=== PATIENT | female | born 1965 | race Caucasian/White ===

== ENCOUNTER 2019-11-07 22:32 | Emergency (ER) | payer MEDICAID ==
[2019-11-07] MEDS ORDERED: Ondansetron 4 MG/2 ML SDV IVPUSH ONE (23:12)
[2019-11-07] MEDS ORDERED: Sodium Chloride 0.9% 2.5 ML Syringe FLUSH PRN (23:12)
[2019-11-07] MEDS ORDERED: Sodium Chloride 0.9% 10 ML Syringe FLUSH PRN (23:12)
[2019-11-07] MEDS ORDERED: Pantoprazole 40 MG in Sodium Chloride 0.9% 10 ML IV ONE (23:14)
[2019-11-07] MEDS ORDERED: Sodium Chloride 0.9% 1,000 ML IV SCH (23:15)
--- NOTE | 2019-11-07 23:18 | EDM.PDOC ---
ED HPI GENERAL MEDICAL PROBLEM - General Chief Complaint: Abdominal Pain Stated Complaint: VOMITTING,ABODOMINAL PAIN Time Seen by Provider: 11/07/19 22:50 - History of Present Illness INITIAL COMMENTS - FREE TEXT/NARRATIVE: History of present illness: [] The patient is recently been tapered down to every other day venlafaxine per her doctor in [place]. She has begun to have vomiting today and cannot keep anything down. When she takes something by mouth she immediately gets epigastric pain then she vomits. She does not have the pain in between the episodes of trying to eat. Her bowels are soft and sometimes hard but not terribly Adaline. When she vomits she loses a little bit a urine but there is no burning. Patient feels lightheaded when she stands and feels like she is dehydrated. Her mouth is very dry. All of this follows reduction of her gabapentin and complete withdrawal recently. She had been taking that for pain in the sciatic region on the left side. The patient decided that she was trying to withdraw from to many things too quickly and took an extra venlafaxine today but was unable to keep it down. Review of systems: As per history of present illness and below otherwise all systems reviewed and negative. Past medical history: As per history of present illness and as reviewed below otherwise noncontributory. Surgical history: As per history of present illness and as reviewed below otherwise noncontributory. Social history: No reported history of drug or alcohol abuse. Family history: As per history of present illness and as reviewed below otherwise noncontributory. Physical exam: Constitutional - well developed, well-nourished and in no acute distress HEENT - normocephalic, no evidence of trauma - external nose and mouth normal - no mass in neck and no JVD - mucosae moist EYES - full EOM, PERRL, no icterus - no evidence of inflammation, injection, or drainage Respiratory - no respiratory distress, equal bilateral expansion, lungs clear to auscultation and no abnormal lung sounds Cardiovascular - Regular Rhythm with S1 and S2 appreciated and no murmur, gallop or rub. Peripheral pulses symmetrically normal in all four extremities GI -tender epigastrium but in the epigastrium - abdomen soft without distension or organomegaly - normal bowel sounds - no guard or rebound Musculoskeletal no gross deformity of long bones or joints - no tenderness, swelling or edema Neurologic - Alert and oriented times four - CN II-XII grossly intact - motor sensory and coordination symmetrically normal Psychiatric - appropriate mood and affect with normal thought content Hematologic - No petechiae or purpura - mucosa appropriate color and sclera not pale - normal nail bed color and refill Integument - no rash or evidence of trauma -diminished turgor Diagnostics: [] Therapeutics: [] Impression: [] Plan: [] Definitive disposition and diagnosis as appropriate pending reevaluation and review of above. abdomen Pain Score (Numeric/FACES): 8 - Related Data Allergies Allergy/AdvReac Type Severity Reaction Status Date / Time latex Allergy Rash Verified 11/07/19 23:42 Sulfa (Sulfonamide Allergy Cannot Verified 11/07/19 23:42 Antibiotics) Remember Home Meds: Home Meds ALPRAZolam [Alprazolam] 0.5 mg PO TID PRN #15 tablet 11/08/19 [Rx] Ondansetron [Zofran ODT] 4 mg PO Q6H PRN #10 tab.dis 11/08/19 [Rx] ED ROS GENERAL - Review of Systems Review Of Systems: Comprehensive ROS is negative, except as noted in HPI. ED EXAM, GENERAL - Physical Exam Exam: See Below Free Text/Narrative:: My physical exam as in the HPI Course - Vital Signs Text/Narrative:: The patient improved with hydration and the medications ordered. She will be told to take her results twice a day, use antacids as needed, and given a prescription for Xanax for short-term relief of her anxiety and Zofran for nausea. Last Recorded V/S: Last Vital Signs Temp 96.2 F L 11/07/19 23:06 Pulse 64 11/08/19 00:30 Resp 17 11/08/19 00:30 BP 117/55 L 11/08/19 00:30 Pulse Ox 94 L 11/08/19 00:30 - Orders/Labs/Meds Orders: Active Orders 24 hr Category Date Time Status Communication Order [RC] STAT Care 11/07/19 23:15 Active Sodium Chloride 0.9% [Normal Saline] 1,000 ml Med 11/07/19 23:15 Active IV ASDIRECTED Sodium Chloride 0.9% [Saline Flush] Med 11/07/19 23:12 Active 10 ml FLUSH ASDIRECTED PRN Sodium Chloride 0.9% [Saline Flush] Med 11/07/19 23:12 Active 2.5 ml FLUSH ASDIRECTED PRN Saline Lock Insert [OM.PC] Stat Oth 11/07/19 23:12 Ordered Medication Orders Sodium Chloride (Normal Saline) 1,000 mls @ 150 mls/hr IV ASDIRECTED RADHA Last Infusion: 11/08/19 00:41 Dose: 999 mls/hr Documented by: Admin: 11/07/19 23:43 Dose: 150 mls/hr Documented by: LORENZA Sodium Chloride (Saline Flush) 10 ml FLUSH ASDIRECTED PRN PRN Reason: Keep Vein Open Sodium Chloride (Saline Flush) 2.5 ml FLUSH ASDIRECTED PRN PRN Reason: Keep Vein Open Labs: Laboratory Tests 11/07/19 11/07/19 11/07/19 Range/Units 23:05 23:28 23:28 WBC 7.01 (4.0-11.0) K/uL RBC 4.55 (4.30-5.90) M/uL Hgb 15.9 (12.0-16.0) g/dL Hct 45.3 (36.0-46.0) % MCV 99.6 H (80.0-98.0) fL MCH 34.9 H (27.0-32.0) pg MCHC 35.1 (31.0-37.0) g/dL RDW Std Deviation 42.2 (28.0-62.0) fl RDW Coeff of Martha 12 (11.0-15.0) % Plt Count 220 (150-400) K/uL MPV 9.80 (7.40-12.00) fL Neut % (Auto) 71.6 (48.0-80.0) % Lymph % (Auto) 17.8 (16.0-40.0) % Dillon % (Auto) 10.1 (0.0-15.0) % Eos % (Auto) 0.1 (0.0-7.0) % Baso % (Auto) 0.4 (0.0-1.5) % Neut # (Auto) 5.0 (1.4-5.7) K/uL Lymph # (Auto) 1.3 (0.6-2.4) K/uL Dillon # (Auto) 0.7 (0.0-0.8) K/uL Eos # (Auto) 0.0 (0.0-0.7) K/uL Baso # (Auto) 0.0 (0.0-0.1) K/uL Nucleated RBC % 0.0 /100WBC Nucleated RBCs # 0 K/uL Sodium 142 (136-145) mmol/L Potassium 4.1 (3.5-5.1) mmol/L Chloride 100 (98-107) mmol/L Carbon Dioxide 30.0 (21.0-32.0) mmol/L BUN 13 (7.0-18.0) mg/dL Creatinine 0.9 (0.6-1.0) mg/dL Est Cr Clr Drug Dosing TNP Estimated GFR (MDRD) > 60.0 ml/min Glucose 161 H (74-106) mg/dL Calcium 9.9 (8.5-10.1) mg/dL Magnesium 1.7 L (1.8-2.4) mg/dL Total Bilirubin 0.7 (0.2-1.0) mg/dL AST 55 H (15-37) IU/L ALT 85 H (14-63) IU/L Alkaline Phosphatase 79 (46-116) U/L Total Protein 8.5 H (6.4-8.2) g/dL Albumin 4.7 (3.4-5.0) g/dL Globulin 3.8 (2.6-4.0) g/dL Albumin/Globulin Ratio 1.2 (0.9-1.6) Lipase 64 L (73-393) U/L Urine Color Cancelled Urine Appearance Cancelled Urine pH Cancelled Ur Specific Holton Cancelled Urine Protein Cancelled Urine Glucose (UA) Cancelled Urine Ketones Cancelled Urine Occult Blood Cancelled Urine Nitrite Cancelled Urine Bilirubin Cancelled Urine Ictotest Cancelled Urine Urobilinogen Cancelled Ur Leukocyte Esterase Cancelled U Hyaline Cast (Auto) Cancelled Urine RBC Cancelled Urine WBC Cancelled Ur Epithelial Cells Cancelled Ur Squamous Epith Cells Cancelled Ur Renal Epithelial Cell Cancelled Calcium Oxalate Crystal Cancelled Uric Acid Crystals Cancelled Triple Phos Crystals Cancelled Other Crystals Cancelled Amorphous Sediment Cancelled Urine Bacteria Cancelled Fine Granular Casts Cancelled Coarse Granular Casts Cancelled Waxy Casts Cancelled RBC Casts Cancelled WBC Casts Cancelled Urine Mucus Cancelled Urine Other Cancelled Urine Trichomonas Cancelled Urine Yeast Cancelled Urine Sperm Cancelled Ur Oval Fat Bodies Cancelled Urinalysis Comment Cancelled 11/07/19 Range/Units 23:50 WBC (4.0-11.0) K/uL RBC (4.30-5.90) M/uL Hgb (12.0-16.0) g/dL Hct (36.0-46.0) % MCV (80.0-98.0) fL MCH (27.0-32.0) pg MCHC (31.0-37.0) g/dL RDW Std Deviation (28.0-62.0) fl RDW Coeff of Martha (11.0-15.0) % Plt Count (150-400) K/uL MPV (7.40-12.00) fL Neut % (Auto) (48.0-80.0) % Lymph % (Auto) (16.0-40.0) % Dillon % (Auto) (0.0-15.0) % Eos % (Auto) (0.0-7.0) % Baso % (Auto) (0.0-1.5) % Neut # (Auto) (1.4-5.7) K/uL Lymph # (Auto) (0.6-2.4) K/uL Dillon # (Auto) (0.0-0.8) K/uL Eos # (Auto) (0.0-0.7) K/uL Baso # (Auto) (0.0-0.1) K/uL Nucleated RBC % /100WBC Nucleated RBCs # K/uL Sodium (136-145) mmol/L Potassium (3.5-5.1) mmol/L Chloride (98-107) mmol/L Carbon Dioxide (21.0-32.0) mmol/L BUN (7.0-18.0) mg/dL Creatinine (0.6-1.0) mg/dL Est Cr Clr Drug Dosing Estimated GFR (MDRD) ml/min Glucose (74-106) mg/dL Calcium (8.5-10.1) mg/dL Magnesium (1.8-2.4) mg/dL Total Bilirubin (0.2-1.0) mg/dL AST (15-37) IU/L ALT (14-63) IU/L Alkaline Phosphatase (46-116) U/L Total Protein (6.4-8.2) g/dL Albumin (3.4-5.0) g/dL Globulin (2.6-4.0) g/dL Albumin/Globulin Ratio (0.9-1.6) Lipase (73-393) U/L Urine Color YELLOW Urine Appearance CLEAR Urine pH 6.5 Ur Specific Holton >= 1.030 Urine Protein 30 H Urine Glucose (UA) NEGATIVE Urine Ketones NEGATIVE Urine Occult Blood TRACE-INTACT H Urine Nitrite NEGATIVE Urine Bilirubin NEGATIVE Urine Ictotest Urine Urobilinogen 0.2 Ur Leukocyte Esterase NEGATIVE U Hyaline Cast (Auto) Urine RBC 0-2 Urine WBC 0-1 Ur Epithelial Cells RARE Ur Squamous Epith Cells Ur Renal Epithelial Cell Calcium Oxalate Crystal Uric Acid Crystals Triple Phos Crystals Other Crystals Amorphous Sediment Urine Bacteria RARE Fine Granular Casts Coarse Granular Casts Waxy Casts RBC Casts WBC Casts Urine Mucus LIGHT Urine Other Urine Trichomonas Urine Yeast Urine Sperm Ur Oval Fat Bodies Urinalysis Comment Meds: Medications Generic Name Dose Route Start Last Admin Trade Name Freq PRN Reason Stop Dose Admin Sodium Chloride 1,000 mls @ 150 mls/hr 11/07/19 23:15 11/08/19 00:41 Normal Saline IV 999 mls/hr ASDIRECTED RADHA Infusion Sodium Chloride 10 ml 11/07/19 23:12 Saline Flush FLUSH ASDIRECTED PRN Keep Vein Open Sodium Chloride 2.5 ml 11/07/19 23:12 Saline Flush FLUSH ASDIRECTED PRN Keep Vein Open Discontinued Medications Generic Name Dose Route Start Last Admin Trade Name Freesther PRN Reason Stop Dose Admin Fentanyl 50 mcg 11/07/19 23:53 11/08/19 00:17 Fentanyl IVPUSH 11/07/19 23:54 50 mcg ONETIME ONE Administration Fentanyl Confirm 11/08/19 00:14 11/08/19 00:36 Fentanyl Administered 11/08/19 00:15 Not Given Dose 50 mcg .ROUTE .STK-MED ONE Pantoprazole Sodium 40 mg/ 10 mls @ 300 mls/hr 11/07/19 23:14 11/07/19 23:47 Sodium Chloride IV 11/07/19 23:15 300 mls/hr NOW ONE Administration Lorazepam 1 mg 11/07/19 23:52 11/08/19 00:18 Ativan IVPUSH 11/07/19 23:53 1 mg ONETIME ONE Administration Lorazepam Confirm 11/08/19 00:14 11/08/19 00:36 Ativan Administered 11/08/19 00:15 Not Given Dose 2 mg .ROUTE .STK-MED ONE Ondansetron HCl 4 mg 11/07/19 23:12 11/07/19 23:44 Zofran IVPUSH 11/07/19 23:13 4 mg ONETIME ONE Administration Departure - Departure Time of Disposition: : Disposition: Home, Self-Care 01 Condition: Good Clinical Impression: Abdominal pain, Vomiting - Discharge Information Prescriptions: ALPRAZolam [Alprazolam] 0.5 mg PO TID PRN #15 tablet PRN Reason: Anxiety Ondansetron [Zofran ODT] 4 mg PO Q6H PRN #10 tab.dis PRN Reason: Nausea Instructions: Abdominal Pain, Adult, Nausea and Vomiting, Adult, [id number] Referrals: PCP,None [Primary Care Provider] - Forms: ED Department Discharge Additional Instructions: The following information is given to patients seen in the emergency department who are being discharged to home. This information is to outline your options for follow-up care. We provide all patients seen in our emergency department with a follow-up referral. The need for follow-up, as well as the timing and circumstances, are variable depending upon the specifics of your emergency department visit. If you don't have a primary care physician on staff, we will provide you with a referral. We always advise you to contact your personal physician following an emergency department visit to inform them of the circumstance of the visit and for follow-up with them and/or the need for any referrals to a consulting specialist. The emergency department will also refer you to a specialist when appropriate. This referral assures that you have the opportunity for follow-up care with a specialist. All of these measure are taken in an effort to provide you with optimal care, which includes your follow-up. Under all circumstances we always encourage you to contact your private physician who remains a resource for coordinating your care. When calling for follow-up care, please make the office aware that this follow-up is from your recent emergency room visit. If for any reason you are refused follow-up, please contact the [facility] Emergency Department at and asked to speak to the emergency department charge nurse. [facility] - Primary Care [address] [place] [address] [facility] [address] [place] [id number] Sepsis Event Note (ED) - Focused Exam Vital Signs: Vital Signs Temp Pulse Resp BP Pulse Ox 11/08/19 00:30 64 17 117/55 L 94 L 11/07/19 23:06 96.2 F L 73 18 141/76 H 95 - My Orders Last 24 Hours: My Active Orders 11/07/19 23:12 Sodium Chloride 0.9% [Saline Flush] 10 ml FLUSH ASDIRECTED PRN Sodium Chloride 0.9% [Saline Flush] 2.5 ml FLUSH ASDIRECTED PRN Saline Lock Insert [OM.PC] Stat 11/07/19 23:15 Communication Order [RC] STAT Sodium Chloride 0.9% [Normal Saline] 1,000 ml IV ASDIRECTED - Assessment/Plan Last 24 Hours: My Active Orders 11/07/19 23:12 Sodium Chloride 0.9% [Saline Flush] 10 ml FLUSH ASDIRECTED PRN Sodium Chloride 0.9% [Saline Flush] 2.5 ml FLUSH ASDIRECTED PRN Saline Lock Insert [OM.PC] Stat 11/07/19 23:15 Communication Order [RC] STAT Sodium Chloride 0.9% [Normal Saline] 1,000 ml IV ASDIRECTED
[2019-11-07] MEDS ORDERED: LORazepam 2 MG/ML SDV IVPUSH ONE (23:52)
[2019-11-07] MEDS ORDERED: fentaNYL 50 MCG/ML SDV IVPUSH ONE (23:53)
[2019-11-07 23:58] LABS: BLOOD UREA NITROGEN,BUN 13 mg/dL (7.0-18.0); CHLORIDE,CL 100 mmol/L (98-107); GLUCOSE RANDOM 161 mg/dL (74-106); LIPASE 64 U/L (73-393); POTASSIUM,K 4.1 mmol/L (3.5-5.1); SODIUM,NA 142 mmol/L (136-145)
[2019-11-08] MEDS ORDERED: LORazepam 2 MG/ML SDV ONE (00:14)
[2019-11-08] MEDS ORDERED: fentaNYL 50 MCG/ML SDV ONE (00:14)
== END 2019-11-08 01:35 | disposition home or self-care (01) ==
LOC: MW.ED 22:32
DX: R10.9 Unspecified abdominal pain (principal); R11.10 Vomiting, unspecified; Z88.2 Allergy status to sulfonamides; Z91.040 Latex allergy status; Z79.899 Other long term (current) drug therapy
CPT/HCPCS: 36415; 80053; 81001; 83690; 83735; 85025; 96361; 96374; 96375; 99284; C9113; J2060; J2405; J3010; J7030; J7050; 99283

== ENCOUNTER 2019-12-17 19:34 | Emergency (ER) | payer MEDICAID ==
[2019-12-17] MEDS ORDERED: Sodium Chloride 0.9% 2.5 ML Syringe FLUSH PRN (19:40)
[2019-12-17] MEDS ORDERED: Sodium Chloride 0.9% 10 ML Syringe FLUSH PRN (19:40)
[2019-12-17] MEDS ORDERED: Ondansetron 4 MG/2 ML SDV IVPUSH ONE (20:03)
[2019-12-17] MEDS ORDERED: Lactated Ringers 1,000 ML IV ONE (20:03)
[2019-12-17] MEDS ORDERED: LORazepam 2 MG/ML SDV IVPUSH ONE (20:03)
--- NOTE | 2019-12-17 20:17 | EDM.PDOC ---
ED HPI GENERAL MEDICAL PROBLEM - General Chief Complaint: Gastrointestinal Problem Stated Complaint: VOMITING Time Seen by Provider: 12/17/19 19:36 Source of Information: Reports: Patient History Limitations: Reports: No Limitations - History of Present Illness INITIAL COMMENTS - FREE TEXT/NARRATIVE: 54-year-old female with history of CAD with stent, HTN, anxiety, GERD presents with nausea and vomiting since 2 PM today. She vomited 2 episodes of nonbloody and nonbilious substance and then started dry heaving, too many times to count. Now her back is sore. This started after drinking water. She denies chest pain, shortness of breath, abdominal pain, fever, dysuria, urinary frequency. She does admit to feeling clammy with chills and palpitations. She had a Holter monitor placed. ROS: A 10-point review of systems, other than pertinent positives and negatives as stated per HPI, is otherwise negative Past medical history: No additional pertinent history Past Surgical history: No additional pertinent history Social history: No additional pertinent history Family history: No additional pertinent history PHYSICAL EXAM General: AOx4, GCS = 15, No distress HEENT: dry mucous membrane Neck: supple, no meningismus, no Kernig or Brudzinski Cardiac: S1S2 RRR Respiratory: CTAB, no crackles or rales, no wheezing Abdomen: Soft, nontender, no rebound or guarding, nondistended, no pulsatile mass. Back: nontender Musculoskeletal: NVI distally, no deformity Neuro: No focal deficits, CN 2 - 12 WNL. - Related Data Allergies Allergy/AdvReac Type Severity Reaction Status Date / Time latex Allergy Rash Verified 12/17/19 19:43 Sulfa (Sulfonamide Allergy Cannot Verified 12/17/19 19:43 Antibiotics) Remember Home Meds: Home Meds ALPRAZolam [Alprazolam] 0.5 mg PO TID PRN #15 tablet 11/08/19 [Rx] Ondansetron [Zofran ODT] 4 mg PO Q6H PRN #10 tab.dis 11/08/19 [Rx] Aspirin 81 mg PO DAILY 12/17/19 [History] Clopidogrel [Plavix] 75 mg PO DAILY 12/17/19 [History] Metoprolol Tartrate 25 mg PO DAILY 12/17/19 [History] Ondansetron [Zofran ODT] 4 mg PO Q6H PRN #12 tab.dis 12/17/19 [Rx] Venlafaxine [Effexor] 37.5 mg PO DAILY 12/17/19 [History] traZODone HCl [Trazodone HCl] 50 mg PO DAILY 12/17/19 [History] Past Medical History HEENT History: Reports: None Cardiovascular History: Reports: High Cholesterol, Stents Respiratory History: Reports: None Gastrointestinal History: Reports: Irritable Bowel Syndrome Genitourinary History: Reports: None 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: Musculoskeletal History: Reports: None Neurological History: Reports: None Psychiatric History: Reports: Anxiety, Depression, PTSD Endocrine/Metabolic History: Reports: None Hematologic History: Reports: None Immunologic History: Reports: None Oncologic (Cancer) History: Reports: None Dermatologic History: Reports: None - Infectious Disease History Infectious Disease History: Reports: None - Past Surgical History Head Surgeries/Procedures: Reports: None Cardiovascular Surgical History: Reports: Coronary Artery Stent GI Surgical History: Reports: None Social & Family History - Family History Family Medical History: Noncontributory - Tobacco Use Smoking Status *Q: Former Smoker Used Tobacco, but Quit: No - Caffeine Use Caffeine Use: Reports: None - Recreational Drug Use Recreational Drug Use: No ED ROS GENERAL - Review of Systems Review Of Systems: Comprehensive ROS is negative, except as noted in HPI. ED EXAM, GENERAL - Physical Exam Exam: See Below (see dictation) EKG INTERPRETATION EKG Interpretation Comments: 65 Bpm, NSR, normal QRS interval, poor R wave progression, no STEMI. EKG and rhythm strip interpreted by me at 2010 Course - Vital Signs Last Recorded V/S: Last Vital Signs Temp 96.5 F L 12/17/19 19:45 Pulse 66 12/17/19 20:15 Resp 18 12/17/19 20:15 BP 142/58 H 12/17/19 22:45 Pulse Ox 98 12/17/19 19:45 - Orders/Labs/Meds Orders: Active Orders 24 hr Category Date Time Status EKG 12 Lead [EKG Documentation Completion] [RC] STAT Care 12/17/19 20:03 Active CTA Abd Pelv w Cont [CT] Stat Exams 12/17/19 20:14 Taken Sodium Chloride 0.9% [Saline Flush] Med 12/17/19 19:40 Active 10 ml FLUSH ASDIRECTED PRN Sodium Chloride 0.9% [Saline Flush] Med 12/17/19 19:40 Active 2.5 ml FLUSH ASDIRECTED PRN Saline Lock Insert [OM.PC] Stat Oth 12/17/19 19:40 Ordered Medication Orders Sodium Chloride (Saline Flush) 10 ml FLUSH ASDIRECTED PRN PRN Reason: Keep Vein Open Sodium Chloride (Saline Flush) 2.5 ml FLUSH ASDIRECTED PRN PRN Reason: Keep Vein Open Labs: Laboratory Tests 12/17/19 12/17/19 12/17/19 Range/Units 19:45 19:55 19:55 WBC 5.62 (4.0-11.0) K/uL RBC 4.19 L (4.30-5.90) M/uL Hgb 14.8 (12.0-16.0) g/dL Hct 41.4 (36.0-46.0) % MCV 98.8 H (80.0-98.0) fL MCH 35.3 H (27.0-32.0) pg MCHC 35.7 (31.0-37.0) g/dL RDW Std Deviation 43.3 (28.0-62.0) fl RDW Coeff of Martha 12 (11.0-15.0) % Plt Count 158 (150-400) K/uL MPV 9.40 (7.40-12.00) fL Neut % (Auto) 60.9 (48.0-80.0) % Lymph % (Auto) 27.8 (16.0-40.0) % [place] % (Auto) 9.4 (0.0-15.0) % Eos % (Auto) 1.4 (0.0-7.0) % Baso % (Auto) 0.5 (0.0-1.5) % Neut # (Auto) 3.4 (1.4-5.7) K/uL Lymph # (Auto) 1.6 (0.6-2.4) K/uL [place] # (Auto) 0.5 (0.0-0.8) K/uL Eos # (Auto) 0.1 (0.0-0.7) K/uL Baso # (Auto) 0.0 (0.0-0.1) K/uL Nucleated RBC % 0.0 /100WBC Nucleated RBCs # 0 K/uL Sodium 138 (136-145) mmol/L Potassium 3.9 (3.5-5.1) mmol/L Chloride 99 (98-107) mmol/L Carbon Dioxide 28.0 (21.0-32.0) mmol/L BUN 9 (7.0-18.0) mg/dL Creatinine 1.0 (0.6-1.0) mg/dL Est Cr Clr Drug Dosing 47.40 mL/min Estimated GFR (MDRD) 57.4 ml/min Glucose 121 H (74-106) mg/dL Calcium 10.1 (8.5-10.1) mg/dL Total Bilirubin 1.0 (0.2-1.0) mg/dL AST 75 H (15-37) IU/L ALT 109 H (14-63) IU/L Alkaline Phosphatase 72 (46-116) U/L Troponin I (0.000-0.056) ng/mL Total Protein 8.0 (6.4-8.2) g/dL Albumin 4.9 (3.4-5.0) g/dL Globulin 3.1 (2.6-4.0) g/dL Albumin/Globulin Ratio 1.6 (0.9-1.6) Lipase 131 (73-393) U/L Urine Color YELLOW Urine Appearance HAZY Urine pH 7.0 (5.0-8.0) Ur Specific [place] 1.025 (1.001-1.035) Urine Protein 30 H (NEGATIVE) mg/dL Urine Glucose (UA) NEGATIVE (NEGATIVE) mg/dL Urine Ketones 15 H (NEGATIVE) mg/dL Urine Occult Blood SMALL H (NEGATIVE) Urine Nitrite NEGATIVE (NEGATIVE) Urine Bilirubin SMALL H (NEGATIVE) Urine Ictotest NEGATIVE Urine Urobilinogen 1.0 (<2.0) EU/dL Ur Leukocyte Esterase NEGATIVE (NEGATIVE) Urine RBC 0-4 (0-2/HPF) Urine WBC 0-2 (0-5/HPF) Ur Epithelial Cells FEW (NONE-FEW) Urine Bacteria FEW (NEGATIVE) 12/17/19 12/17/19 Range/Units 19:55 22:59 WBC (4.0-11.0) K/uL RBC (4.30-5.90) M/uL Hgb (12.0-16.0) g/dL Hct (36.0-46.0) % MCV (80.0-98.0) fL MCH (27.0-32.0) pg MCHC (31.0-37.0) g/dL RDW Std Deviation (28.0-62.0) fl RDW Coeff of Martha (11.0-15.0) % Plt Count (150-400) K/uL MPV (7.40-12.00) fL Neut % (Auto) (48.0-80.0) % Lymph % (Auto) (16.0-40.0) % [place] % (Auto) (0.0-15.0) % Eos % (Auto) (0.0-7.0) % Baso % (Auto) (0.0-1.5) % Neut # (Auto) (1.4-5.7) K/uL Lymph # (Auto) (0.6-2.4) K/uL [place] # (Auto) (0.0-0.8) K/uL Eos # (Auto) (0.0-0.7) K/uL Baso # (Auto) (0.0-0.1) K/uL Nucleated RBC % /100WBC Nucleated RBCs # K/uL Sodium (136-145) mmol/L Potassium (3.5-5.1) mmol/L Chloride (98-107) mmol/L Carbon Dioxide (21.0-32.0) mmol/L BUN (7.0-18.0) mg/dL Creatinine (0.6-1.0) mg/dL Est Cr Clr Drug Dosing mL/min Estimated GFR (MDRD) ml/min Glucose (74-106) mg/dL Calcium (8.5-10.1) mg/dL Total Bilirubin (0.2-1.0) mg/dL AST (15-37) IU/L ALT (14-63) IU/L Alkaline Phosphatase (46-116) U/L Troponin I < 0.050 < 0.050 (0.000-0.056) ng/mL Total Protein (6.4-8.2) g/dL Albumin (3.4-5.0) g/dL Globulin (2.6-4.0) g/dL Albumin/Globulin Ratio (0.9-1.6) Lipase (73-393) U/L Urine Color Urine Appearance Urine pH (5.0-8.0) Ur Specific [place] (1.001-1.035) Urine Protein (NEGATIVE) mg/dL Urine Glucose (UA) (NEGATIVE) mg/dL Urine Ketones (NEGATIVE) mg/dL Urine Occult Blood (NEGATIVE) Urine Nitrite (NEGATIVE) Urine Bilirubin (NEGATIVE) Urine Ictotest Urine Urobilinogen (<2.0) EU/dL Ur Leukocyte Esterase (NEGATIVE) Urine RBC (0-2/HPF) Urine WBC (0-5/HPF) Ur Epithelial Cells (NONE-FEW) Urine Bacteria (NEGATIVE) Meds: Medications Generic Name Dose Route Start Last Admin Trade Name Freesther PRN Reason Stop Dose Admin Sodium Chloride 10 ml 12/17/19 19:40 Saline Flush FLUSH ASDIRECTED PRN Keep Vein Open Sodium Chloride 2.5 ml 12/17/19 19:40 Saline Flush FLUSH ASDIRECTED PRN Keep Vein Open Discontinued Medications Generic Name Dose Route Start Last Admin Trade Name Goyo PRN Reason Stop Dose Admin Lactated Ringer's 1,000 mls @ 999 mls/hr 12/17/19 20:03 12/17/19 20:10 Ringers, Lactated IV 12/17/19 21:03 999 mls/hr .BOLUS ONE Administration Iopamidol 100 ml 12/17/19 21:40 12/17/19 21:41 Isovue-370 (76%) IVPUSH 12/17/19 21:41 100 ml ONETIME ONE Administration Lorazepam 1 mg 12/17/19 20:03 12/17/19 20:10 Ativan IVPUSH 12/17/19 20:04 1 mg ONETIME ONE Administration Ondansetron HCl 4 mg 12/17/19 20:03 12/17/19 20:10 Zofran IVPUSH 12/17/19 20:04 4 mg ONETIME ONE Administration - Re-Assessments/Exams Free Text/Narrative Re-Assessment/Exam: 12/17/19 2245 BP improved to 142/58 12/17/19 2339 After IVF, zofran and observation in the ER, patient improved clinically and is currently stable for discharge. I performed a repeat exam and did not appreciate new abnormal findings. Patient exhibits normal vital signs and has a normal gait on road test. I advised the patient to return to the ER for reevaluation if symptoms worsened, including fever, worsening pain, or any other worrisome symptoms. I instructed the patient to follow up with their PCP within 2-3 days. MEDICAL DECISION MAKING: I reviewed the patients past medical records, lab and radiographic findings. I discussed the case with the patient. My differential diagnosis included: Atypical chest pain, Aortic dissection, electrolyte abnormality, pneumonia, PE, pneumothorax, chest wall pain, pulmonary edema/CHF, aortic dissection, pericarditis, intra-abdominal process. Given the EKG and clinical history, I do not suspect pericarditis. There is no evidence of pneumothorax or infiltrate on CXR. Aortic dissection and PE were considered and ruled out on CTA study. Her history, chest X-ray, and exam do not suggest pulmonary edema/congestive heart failure. Intra-abdominal pathology felt unlikely given benign/non tender abdominal exam. Acute coronary syndrome was considered but there are negative serial biomarkers by 3 hours apart, no acute ischemic EKG changes, and the patient has a low HEART score of 2. Based on this, I feel that there is low risk for short-term major adverse cardiac event. I have discussed this with the patient and reviewed options for inpatient and outpatient management. The patient verbalizes an excellent understanding of the above including presence of small risk of short-term major adverse cardiac event even in the setting of low HEART score, negative cardiac biomarker, and compendium of elements of this presentation. The patient wishes to pursue further workup on as an outpatient. Departure - Departure Time of Disposition: 23:41 Disposition: Home, Self-Care 01 Condition: Good Clinical Impression: Vomiting - Discharge Information *PRESCRIPTION DRUG MONITORING PROGRAM REVIEWED*: Not Applicable *COPY OF PRESCRIPTION DRUG MONITORING REPORT IN PATIENT BRIGID: Not Applicable Prescriptions: Ondansetron [Zofran ODT] 4 mg PO Q6H PRN #12 tab.dis PRN Reason: Vomiting Instructions: Nausea and Vomiting, Adult Referrals: PCP,None [Primary Care Provider] - Forms: ED Department Discharge Additional Instructions: The need for follow-up, as well as the timing and circumstances, are variable depending upon the specifics of your emergency department visit. If you don't have a primary care physician on staff, we will provide you with a referral. We always advise you to contact your personal physician following an emergency department visit to inform them of the circumstance of the visit and for follow-up with them and/or the need for any referrals to a consulting specialist. The emergency department will also refer you to a specialist when appropriate. This referral assures that you have the opportunity for follow-up care with a specialist. All of these measure are taken in an effort to provide you with optimal care, which includes your follow-up. Under all circumstances we always encourage you to contact your private physician who remains a resource for coordinating your care. When calling for follow-up care, please make the office aware that this follow-up is from your recent emergency room visit. If for any reason you are refused follow-up, please contact the [facility] Emergency Department at and asked to speak to the emergency department charge nurse. If you do not have a primary care doctor, please follow up with the clinics below within 3-5 days. [facility] - Primary Care [address] [place] [id number] [address] [address] Sepsis Event Note (ED) - Evaluation Sepsis Screening Result: No Definite Risk - Focused Exam Vital Signs: Vital Signs Temp Pulse Resp BP Pulse Ox 12/17/19 22:45 142/58 H 12/17/19 20:15 66 18 153/82 H 12/17/19 19:45 96.5 F L 69 18 180/90 H 98 - My Orders Last 24 Hours: My Active Orders 12/17/19 19:40 Sodium Chloride 0.9% [Saline Flush] 10 ml FLUSH ASDIRECTED PRN Sodium Chloride 0.9% [Saline Flush] 2.5 ml FLUSH ASDIRECTED PRN Saline Lock Insert [OM.PC] Stat 12/17/19 20:03 EKG 12 Lead [EKG Documentation Completion] [RC] STAT 12/17/19 20:14 CTA Abd Pelv w Cont [CT] Stat - Assessment/Plan Last 24 Hours: My Active Orders 12/17/19 19:40 Sodium Chloride 0.9% [Saline Flush] 10 ml FLUSH ASDIRECTED PRN Sodium Chloride 0.9% [Saline Flush] 2.5 ml FLUSH ASDIRECTED PRN Saline Lock Insert [OM.PC] Stat 12/17/19 20:03 EKG 12 Lead [EKG Documentation Completion] [RC] STAT 12/17/19 20:14 CTA Abd Pelv w Cont [CT] Stat
[2019-12-17 20:49] LABS: POTASSIUM,K 3.9 mmol/L (3.5-5.1)
[2019-12-17] MEDS ORDERED: Iopamidol 755 Mg/ML 100 ML Bottle IVPUSH ONE (21:40)
--- NOTE | 2019-12-18 10:07 | CT ---
EXAM DATE: 12/17/19 PATIENT'S AGE: 54 CT chest Technique: Multiple axial sections through the chest were obtained. Intravenous contrast was utilized. Findings: Ascending aorta is ectatic with AP dimension of 3.3 cm. Descending aorta shows no aneurysm. No dissection is seen. Pulmonary arteries are well opacified. No filling defects are seen to indicate pulmonary embolism. Mediastinum and hilar regions show no adenopathy. Lungs show no acute parenchymal change. No pleural effusions are seen. Bone window setting show no acute osseous finding. Scattered endplate spurring is noted within the spine. Impression: 1. Mildly ectatic ascending aorta at 3.3 cm. No aneurysm or dissection is seen. No pulmonary embolism is seen. 2. Mild degenerative endplate spurring is noted within the spine. 3. Nothing acute is seen on CT study of the chest. Diagnostic code #2 This report was dictated in MDT CT abdomen and pelvis Technique: Multiple axial sections were obtained from above the dome of the diaphragm inferiorly through the pubic symphysis. Intravenous contrast was utilized. No oral contrast has been given. Findings: Liver shows severe fatty infiltration. Nodule is noted within the upper right lobe of the liver measuring 1.3 cm. Uncertain if this represents a small solid lesion within the liver or represents a small area of focal fatty sparing. Given that this is the only finding within the liver this is believed to be benign. Spleen appears within normal limits. Small amount of accessory splenic tissue is noted off the inferior spleen. Adrenal glands show no nodule. Kidneys show symmetric contrast enhancement without hydronephrosis or mass. Surgical clips are seen from previous cholecystectomy. Pancreas is normal. No retroperitoneal adenopathy or mesenteric abnormalities are seen. No pelvic mass or adenopathy is seen. Aorta shows no aneurysm or dissection. Mild atherosclerotic change is seen. Celiac axis and superior mesenteric arteries are patent. Both renal arteries are patent. Two left-sided renal arteries are noted. Inferior mesenteric artery is also patent. Both common iliac arteries as well as external and internal iliac arteries appear patent. Bone window settings were reviewed which show mild spondylolisthesis at L4-5 due to degenerative apophyseal change. Lesser degenerative change is seen within other portions of the spine. No acute osseous finding is seen. Impression: 1. No evidence of abdominal aortic aneurysm or dissection. 2. Severe fatty infiltration within the liver. Other findings as noted above believed to be benign and nonacute. Diagnostic code #3 This report was dictated in MDT MTDD
== END 2019-12-17 23:55 | disposition home or self-care (01) ==
LOC: MW.ED 19:34
DX: R11.10 Vomiting, unspecified (principal); I10 Essential (primary) hypertension; I25.10 Atherosclerotic heart disease of native coronary artery without angina pectoris; F32.9 Major depressive disorder, single episode, unspecified; F41.9 Anxiety disorder, unspecified; F43.10 Post-traumatic stress disorder, unspecified; Z91.040 Latex allergy status; Z88.2 Allergy status to sulfonamides; Z79.82 Long term (current) use of aspirin; Z79.02 Long term (current) use of antithrombotics/antiplatelets; Z79.899 Other long term (current) drug therapy
CPT/HCPCS: 36415; 71275; 74174; 80053; 81001; 83690; 84484; 85025; 93005; 96361; 96374; 96375; 99285; J2060; J2405; J7120; Q9967; 99283

== ENCOUNTER 2020-03-24 09:37 | Day surgery (SDC) | payer MEDICAID ==
[2020-03-21 11:54] LABS: BLOOD UREA NITROGEN,BUN 10 mg/dL (7.0-18.0); CARBON DIOXIDE,CO2 28.7 mmol/L (21.0-32.0); CHLORIDE,CL 101 mmol/L (98-107); GLUCOSE RANDOM 78 mg/dL (74-106); POTASSIUM,K 3.8 mmol/L (3.5-5.1); SODIUM,NA 141 mmol/L (136-145)
[~2020-03-24 09:37] MED LIST: Lactated Ringers 1,000 ML IV SCH; Lidocaine 2% 5 ML SDV ONE; Midazolam 1 MG/ML 2 ML SDV ONE; Ondansetron 4 MG/2 ML SDV ONE; Propofol 200 MG/20 ML SDV ONE; Sodium Chloride 0.9% 10 ML SDV IV PRN; Sodium Chloride 0.9% 10 ML Syringe FLUSH PRN; Sodium Chloride 0.9% 2.5 ML Syringe FLUSH PRN; fentaNYL 250 MCG/5 ML SDV ONE
[2020-03-24] MEDS ORDERED: Neomycin/Polymyxin B Bladder Irrigation 1 ML Amp ONE (10:19)
[2020-03-24] MEDS ORDERED: Fluorescein 5 ML Vial ONE (10:19)
--- NOTE | 2020-03-24 10:20 | PCM.PREANE ---
Preanesthetic Assessment - Anesthesia/Transfusion/Family Hx Anesthesia History: Prior Anesthesia Without Reaction Family History of Anesthesia Reaction: No Transfusion History: No Prior Transfusion(s) - Review of Systems General: No Symptoms Pulmonary: No Symptoms Cardiovascular: No Symptoms Gastrointestinal: No Symptoms Neurological: No Symptoms Other: Reports: None - Physical Assessment NPO Status Date: 03/23/20 Height: 5 ft 1 in Weight: 53.977 kg ASA Class: 3 Mental Status: Alert & Oriented x3 Airway Class: Mallampati = 2 Dentition: Reports: Normal Dentition ROM/Head Extension: Full Lungs: Clear to Auscultation, Normal Respiratory Effort Cardiovascular: Regular Rate, Regular Rhythm - Lab Values: Laboratory Last Values WBC 4.55 K/uL (4.0-11.0) 03/21/20 11:01 RBC 4.42 M/uL (4.30-5.90) 03/21/20 11:01 Hgb 15.6 g/dL (12.0-16.0) 03/21/20 11:01 Hct 45.4 % (36.0-46.0) 03/21/20 11:01 MCV 102.7 fL (80.0-98.0) H 03/21/20 11:01 MCH 35.3 pg (27.0-32.0) H 03/21/20 11:01 MCHC 34.4 g/dL (31.0-37.0) 03/21/20 11:01 RDW Std Deviation 49.5 fl (28.0-62.0) 03/21/20 11:01 RDW Coeff of [place] 13 % (11.0-15.0) 03/21/20 11:01 Plt Count 166 K/uL (150-400) 03/21/20 11:01 MPV 9.00 fL (7.40-12.00) 03/21/20 11:01 Nucleated RBC % 0.0 /100WBC 03/21/20 11:01 Nucleated RBCs # 0 K/uL 03/21/20 11:01 Sodium 141 mmol/L (136-145) 03/21/20 11:01 Potassium 3.8 mmol/L (3.5-5.1) 03/21/20 11:01 Chloride 101 mmol/L (98-107) 03/21/20 11:01 Carbon Dioxide 28.7 mmol/L (21.0-32.0) 03/21/20 11:01 BUN 10 mg/dL (7.0-18.0) 03/21/20 11:01 Creatinine 0.8 mg/dL (0.6-1.0) 03/21/20 11:01 Est Cr Clr Drug Dosing 59.25 mL/min 03/21/20 11:01 Estimated GFR (MDRD) > 60.0 ml/min 03/21/20 11:01 Glucose 78 mg/dL (74-106) 03/21/20 11:01 Calcium 9.8 mg/dL (8.5-10.1) 03/21/20 11:01 HCG, Qual NEGATIVE (NEG) 03/21/20 11:01 Blood Type A NEGATIVE 03/21/20 11:01 Antibody Screen NEGATIVE 03/21/20 11:01 - Allergies Allergies/Adverse Reactions: Allergies Allergy/AdvReac Type Severity Reaction Status Date / Time latex Allergy Rash Verified 03/18/20 09:39 Sulfa (Sulfonamide Allergy Cannot Verified 03/18/20 09:39 Antibiotics) Remember - Blood Blood Available: No - Anesthesia Plan Pre-Op Medication Ordered: None - Acknowledgements Anesthesia Type Planned: General Anesthesia Pt an Appropriate Candidate for the Planned Anesthesia: Yes Alternatives and Risks of Anesthesia Discussed w Pt/Guardian: Yes Pt/Guardian Understands and Agrees with Anesthesia Plan: Yes Additional Comments: PMH: AUD, PTSD, anxiety, chronic pain- R hand and back/LLE, SVT- primarily sinus tachycardia, fatty liver disease PLAN: GET PreAnesthesia Questionnaire HEENT History: Reports: None Other HEENT History: wears glasses Cardiovascular History: Reports: High Cholesterol, Stents Other Cardiovascular History: arteriosclerotic cardiovascular disease; had coronary artery stent placement October 2018 Respiratory History: Reports: None Gastrointestinal History: Reports: Irritable Bowel Syndrome Genitourinary History: Reports: None 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: Musculoskeletal History: Reports: None Neurological History: Reports: None Psychiatric History: Reports: Anxiety, Depression, PTSD Endocrine/Metabolic History: Reports: None Hematologic History: Reports: None Immunologic History: Reports: None Oncologic (Cancer) History: Reports: None Dermatologic History: Reports: None Other Dermatologic History: rosachia - Infectious Disease History Infectious Disease History: Reports: None Other Infectious Disease History: when a child - Past Surgical History Head Surgeries/Procedures: Reports: None HEENT Surgical History: Reports: None Cardiovascular Surgical History: Reports: Coronary Artery Stent GI Surgical History: Reports: None Female Surgical History: Reports: Hysterectomy, Other (See Below) Other Female Surgeries/Procedures: surgical pelvis repair Neurological Surgical History: Reports: None Other Musculoskeletal Surgeries/Procedures:: states has had left hand surgery in the past Dermatological Surgical History: Reports: None - SUBSTANCE USE Tobacco Use Status *Q: Former Tobacco User - HOME MEDS Home Medications: Home Meds Aspirin 81 mg PO DAILY 12/17/19 [History] Clopidogrel [Plavix] 75 mg PO DAILY 12/17/19 [History] Metoprolol Tartrate 25 mg PO DAILY 12/17/19 [History] Venlafaxine [Effexor] 37.5 mg PO DAILY 12/17/19 [History] traZODone HCl [Trazodone HCl] 50 mg PO DAILY 12/17/19 [History] Estrogens, Conjugated [Premarin] 1 applic TOP ASDIRECTED 03/18/20 [History] Famotidine 1 tab PO DAILY 03/18/20 [History] Fluticasone Propionate [Flonase Allergy Relief] 1 spray NASLF DAILY 03/18/20 [History] Gabapentin [Neurontin] 1 tab PO TID 03/18/20 [History] OXcarbazepine [Oxcarbazepine] 1 tab PO DAILY 03/18/20 [History] - CURRENT (IN HOUSE) MEDS Current Meds: Current Medications Lactated Ringer's (Ringers, Lactated) 1,000 mls @ 500 mls/hr IV BOLUS RADHA Sodium Chloride (Saline Flush) 10 ml FLUSH ASDIRECTED PRN PRN Reason: Keep Vein Open Sodium Chloride (Saline Flush) 2.5 ml FLUSH ASDIRECTED PRN PRN Reason: Keep Vein Open Sodium Chloride (Normal Saline) 10 ml IV ASDIRECTED PRN PRN Reason: IV Use Discontinued Medications Fentanyl (Sublimaze) Confirm Administered Dose 250 mcg .ROUTE .STK-MED ONE Stop: 03/24/20 08:51 Lidocaine (Xylocaine-Mpf 2%) Confirm Administered Dose 5 ml .ROUTE .STK-MED ONE Stop: 03/24/20 08:51 Midazolam HCl (Versed 1 Mg/Ml) Confirm Administered Dose 2 mg .ROUTE .STK-MED ONE Stop: 03/24/20 08:51 Ondansetron HCl (Zofran) Confirm Administered Dose 4 mg .ROUTE .STK-MED ONE Stop: 03/24/20 08:51 Propofol (Diprivan 20 Ml) Confirm Administered Dose 200 mg .ROUTE .STK-MED ONE Stop: 03/24/20 08:51
[2020-03-24] MEDS ORDERED: Glycopyrrolate 0.2 MG/ML SDV ONE (10:37)
[2020-03-24] MEDS ORDERED: Furosemide 40 MG/4 ML VIAL ONE (10:51)
--- NOTE | 2020-03-24 11:06 | PCM.OPNOTE ---
- General Post-Op/Procedure Note Date of Surgery/Procedure: 03/24/20 Operative Procedure(s): TVT, cystoscopy Pre Op Diagnosis: EDE Post-Op Diagnosis: Same Anesthesia Technique: General LMA Primary Surgeon: Patrice Coreas EBL in mLs: 100 Complications: None Condition: Good
--- NOTE | 2020-03-24 11:06 | PCM.DCSUM1 ---
Discharge Summary - Hospital Course Diagnosis: Stroke: No - Discharge Data Discharge Date: 03/24/20 Discharge Disposition: Home, Self-Care 01 Condition: Good - Referral to Home Health Primary Care Physician: Amrita Marie NP - Patient Summary/Data Operative Procedure(s) Performed: TVT, cystoscopy - Patient Instructions Diet: Usual Diet as Tolerated Activity: As Tolerated Driving: Do Not Drive Showering/Bathing: May Shower - Discharge Plan Home Medications: Home Meds Aspirin 81 mg PO DAILY 12/17/19 [History] Clopidogrel [Plavix] 75 mg PO DAILY 12/17/19 [History] Metoprolol Tartrate 25 mg PO DAILY 12/17/19 [History] Venlafaxine [Effexor] 37.5 mg PO DAILY 12/17/19 [History] traZODone HCl [Trazodone HCl] 50 mg PO DAILY 12/17/19 [History] Estrogens, Conjugated [Premarin] 1 applic TOP ASDIRECTED 03/18/20 [History] Famotidine 1 tab PO DAILY 03/18/20 [History] Fluticasone Propionate [Flonase Allergy Relief] 1 spray NASLF DAILY 03/18/20 [History] Gabapentin [Neurontin] 1 tab PO TID 03/18/20 [History] OXcarbazepine [Oxcarbazepine] 1 tab PO DAILY 03/18/20 [History] - Discharge Summary/Plan Comment DC Time >30 min.: Yes - General Info Date of Service: 03/24/20 Functional Status: Reports: Pain Controlled - Review of Systems General: Reports: No Symptoms HEENT: Reports: No Symptoms Pulmonary: Reports: No Symptoms Cardiovascular: Reports: No Symptoms Gastrointestinal: Reports: No Symptoms Genitourinary: Reports: No Symptoms Musculoskeletal: Reports: No Symptoms Skin: Reports: No Symptoms Neurological: Reports: No Symptoms Psychiatric: Reports: No Symptoms - Patient Data Vitals - Most Recent: Last Vital Signs Temp 36.5 C 03/24/20 09:46 Pulse 65 03/24/20 09:46 Resp 16 03/24/20 09:46 BP 156/81 H 03/24/20 09:46 Pulse Ox 94 L 03/24/20 09:46 Weight - Most Recent: 53.977 kg Med Orders - Current: Current Medications Lactated Ringer's (Ringers, Lactated) 1,000 mls @ 500 mls/hr IV BOLUS RADHA Last Admin: 03/24/20 10:32 Dose: 500 mls/hr Documented by: Sodium Chloride (Saline Flush) 10 ml FLUSH ASDIRECTED PRN PRN Reason: Keep Vein Open Sodium Chloride (Saline Flush) 2.5 ml FLUSH ASDIRECTED PRN PRN Reason: Keep Vein Open Sodium Chloride (Normal Saline) 10 ml IV ASDIRECTED PRN PRN Reason: IV Use Discontinued Medications Fentanyl (Sublimaze) Confirm Administered Dose 250 mcg .ROUTE .STK-MED ONE Stop: 03/24/20 08:51 Fluorescein Sodium (Ak-Fluor) Confirm Administered Dose 5 ml .ROUTE .STK-MED ONE Stop: 03/24/20 10:20 Furosemide (Lasix) Confirm Administered Dose 40 mg .ROUTE .STK-MED ONE Stop: 03/24/20 10:52 Glycopyrrolate (Robinul) Confirm Administered Dose 0.2 mg .ROUTE .STK-MED ONE Stop: 03/24/20 10:38 Lidocaine (Xylocaine-Mpf 2%) Confirm Administered Dose 5 ml .ROUTE .STK-MED ONE Stop: 03/24/20 08:51 Midazolam HCl (Versed 1 Mg/Ml) Confirm Administered Dose 2 mg .ROUTE .STK-MED ONE Stop: 03/24/20 08:51 Neomycin/Polymyxin (Neosporin Gu Irrigant) Confirm Administered Dose 1 ml .ROUTE .STK-MED ONE Stop: 03/24/20 10:20 Ondansetron HCl (Zofran) Confirm Administered Dose 4 mg .ROUTE .STK-MED ONE Stop: 03/24/20 08:51 Propofol (Diprivan 20 Ml) Confirm Administered Dose 200 mg .ROUTE .STK-MED ONE Stop: 03/24/20 08:51 - Exam General: Reports: Alert, Oriented HEENT: Reports: Pupils Equal, Pupils Reactive, EOMI, Mucous Membr. Moist/[place] Neck: Reports: Supple Lungs: Reports: Clear to Auscultation, Normal Respiratory Effort Cardiovascular: Reports: Regular Rate, Regular Rhythm GI/Abdominal Exam: Normal Bowel Sounds, Soft, Non-Tender, No Organomegaly, No Distention, No Abnormal Bruit, No Mass, Pelvis Stable (Female) Exam: Normal External Exam, Normal Speculum Exam, Normal Bimanual Exam Rectal (Female) Exam: Normal Exam, Normal Rectal Tone Back Exam: Reports: Normal Inspection, Full Range of Motion Extremities: Normal Inspection, Normal Range of Motion, Non-Tender, No Pedal Edema, Normal Capillary Refill Skin: Reports: Warm, Dry, Intact Wound/Incisions: Reports: Healing Well Neurological: Reports: No New Focal Deficit Psy/Mental Status: Reports: Alert, Normal Affect, Normal Mood
--- NOTE | 2020-03-24 11:34 | PCM.POSTAN ---
POST ANESTHESIA ASSESSMENT - MENTAL STATUS Mental Status: Alert, Oriented - VITAL SIGNS Vital Signs: Last Vital Signs Temp 36.5 C 03/24/20 11:02 Pulse 78 03/24/20 11:27 Resp 10 L 03/24/20 11:27 BP 131/77 03/24/20 11:27 Pulse Ox 94 L 03/24/20 11:27 - RESPIRATORY Respiratory Status: Respiratory Rate WNL, Airway Patent, O2 Saturation Stable - CARDIOVASCULAR CV Status: Pulse Rate WNL, Blood Pressure Stable - GASTROINTESTINAL GI Status: No Symptoms - PAIN Pain Score: 0 (Denies pain) - POST OP HYDRATION Hydration Status: Adequate & Stable Free Text/Narrative:: Denies nausea
--- NOTE | 2020-03-24 12:04 | PCM48HPAN ---
Post Anesthesia Note - EVALUATION WITHIN 48HRS OF ANESTHETIC Vital Signs in Normal Range: Yes Patient Participated in Evaluation: Yes Respiratory Function Stable: Yes Airway Patent: Yes Cardiovascular Function Stable: Yes Hydration Status Stable: Yes Pain Control Satisfactory: Yes Nausea and Vomiting Control Satisfactory: Yes Mental Status Recovered: Yes Vital Signs: Last Vital Signs Temp 98.1 F 03/24/20 11:32 Pulse 61 03/24/20 12:02 Resp 14 03/24/20 12:02 BP 135/67 03/24/20 12:02 Pulse Ox 100 03/24/20 12:02
--- NOTE | 2020-03-24 13:08 | OR ---
SURGEON: Patrice Coreas MD DATE OF PROCEDURE: 03/24/2020 PREOPERATIVE DIAGNOSIS: Stress urinary incontinence. POSTOPERATIVE DIAGNOSIS: Stress urinary incontinence. OPERATIONS PERFORMED: Solyx TVT, cystoscopy. PRIMARY SURGEON: Patrice Coreas MD MANAGER APPLIED: YVETTE sams. ANESTHESIA: General endotracheal intubation, Kristian Handy and Dr. Menjivar. ESTIMATED BLOOD LOSS: Less than 100 mL. COMPLICATIONS: None. INDICATIONS FOR SURGERY: Kennard referred to the admit note. PROCEDURE IN DETAIL: The patient was brought to the OR, properly identified, and after adequate level of anesthesia, the patient was placed in lithotomy position, and prepped and draped in sterile fashion as usual. The inch and a half beneath the umbilicus was grabbed with Allis clamp and infiltrated with copious amount of normal saline, and electrocautery was used to do a midline incision. The vaginal mucosa was dissected laterally on both sides in a tunneling fashion until the surgeon could feel the pubic rami on both sides. Solyx TVT placed in place with due amount of tension without severe tension, and then, once it was placed in place, the midline incision of the vagina was closed with 3-0 Vicryl continuous interlocking for hemostasis. After that, cystoscopy performed. The bladder was intact, and the ureters seen with the urine coming from both of them. Satisfied with these findings, the procedure ended. The instrument and sponge count was correct. The patient tolerated the procedure well and went to recovery room in stable general condition. JUNITO / KIRA /[id number]
[2020-03-24] MEDS ORDERED: Acetaminophen/oxyCODONE 325-5 MG Tab PO ONE (13:15)
[2020-03-24] MEDS ORDERED: Acetaminophen/oxyCODONE 325-5 MG Tab ONE (13:21)
== END 2020-03-24 14:18 | disposition home or self-care (01) ==
LOC: EDBD → MW.SDS 09:37
PROVIDERS: ATTEND Obstetrics & Gynecology
DX: N39.3 Stress incontinence (female) (male) (principal); I25.10 Atherosclerotic heart disease of native coronary artery without angina pectoris; F41.9 Anxiety disorder, unspecified; F32.9 Major depressive disorder, single episode, unspecified; E78.00 Pure hypercholesterolemia, unspecified; Z79.82 Long term (current) use of aspirin; Z79.899 Other long term (current) drug therapy; Z91.040 Latex allergy status; Z88.2 Allergy status to sulfonamides; Z95.5 Presence of coronary angioplasty implant and graft; Z98.890 Other specified postprocedural states; Z87.891 Personal history of nicotine dependence
CPT/HCPCS: 36415; 57288; 80048; 84703; 85027; 86850; 86900; 86901; A9270; J2001; J2250; J2405; J2704; J3010; J3490; J7120; J1940

== ENCOUNTER 2020-03-24 20:57 | Emergency (ER) | payer MEDICAID ==
--- NOTE | 2020-03-24 21:30 | EDM.PDOC ---
<Bolivar Titus - Last Filed: 03/24/20 22:32> ED HPI GENERAL MEDICAL PROBLEM - General Chief Complaint: Genitourinary Problem Stated Complaint: SURGERY EARLIER TODAY, COMPLICATIONS Time Seen by Provider: 03/24/20 21:21 - History of Present Illness INITIAL COMMENTS - FREE TEXT/NARRATIVE: Signout received , chart reviewed and patient evaluated. Patient presents to the ER today secondary to urinary retention. Patient's bladder scan reveals that she had approximately 600 cc of urine. Herndon catheter was inserted with removal of approximately 600 cc of clear urine that was sent to the lab, with no evidence of UTI in her urinalysis. Patient reports that she feels improved after Herndon catheter placement. Patient's urinary tension is most likely secondary to anesthetic medications. Patient be discharged home with a Herndon catheter in place and a leg bag with instructions on how to utilize the indwelling Herndon catheter. Patient be instructed to follow-up with her surgeon in 1 to 2 days for reevaluation and removal of her Herndon catheter. Reassessment at the time of disposition demonstrates that the patient is in no acute distress. The patient has remained stable throughout the entire ED visit and is without objective evidence for acute process requiring urgent intervention or hospitalization. The patient is stable for discharge, counseling is provided as documented above, discussed symptomatic treatment and specific conditions for return. I have spoken with the patient/caregiver and discussed todays findings, in addition to providing specific details for the plan of care. Questions are answered and there is agreement with the plan. - Related Data Allergies Allergy/AdvReac Type Severity Reaction Status Date / Time latex Allergy Rash Verified 03/24/20 21:25 Sulfa (Sulfonamide Allergy Cannot Verified 03/24/20 21:25 Antibiotics) Remember Home Meds: Home Meds Aspirin 81 mg PO DAILY 12/17/19 [History] Clopidogrel [Plavix] 75 mg PO DAILY 12/17/19 [History] Metoprolol Tartrate 25 mg PO DAILY 12/17/19 [History] Venlafaxine [Effexor] 37.5 mg PO DAILY 12/17/19 [History] traZODone HCl [Trazodone HCl] 50 mg PO DAILY 12/17/19 [History] Estrogens, Conjugated [Premarin] 1 applic TOP ASDIRECTED 03/18/20 [History] Famotidine 1 tab PO DAILY 03/18/20 [History] Fluticasone Propionate [Flonase Allergy Relief] 1 spray NASLF DAILY 03/18/20 [History] Gabapentin [Neurontin] 1 tab PO TID 03/18/20 [History] OXcarbazepine [Oxcarbazepine] 1 tab PO DAILY 03/18/20 [History] ED ROS GENERAL - Review of Systems Review Of Systems: See Below ED EXAM, GI/ABD - Physical Exam Exam: See Below Departure - Departure Time of Disposition: 22:34 Disposition: Home, Self-Care 01 Condition: Good Clinical Impression: Retention of urine - Discharge Information Instructions: Indwelling Urinary Catheter Care, Adult, Acute Urinary Retention, Female Referrals: Alanna Marie NP [Primary Care Provider] - Forms: ED Department Discharge Additional Instructions: You were seen and evaluated in ER today secondary to urinary retention. This urinary retention is most likely related to the anesthesia that you received in your procedure today. You had approximately 600 cc of urine in your bladder when the Herndon catheter was inserted. You will be sent home with a Herndon catheter and a catheter bag to assist you with drainage of urine over the next 1 to 2 days until the anesthetic effect wears off. Please make an appointment to see your surgeon in 1 to 2 days for reevaluation and removal of your catheter. The following information is given to patients seen in the emergency department who are being discharged to home. This information is to outline your options for follow-up care. We provide all patients seen in our emergency department with a follow-up referral. The need for follow-up, as well as the timing and circumstances, are variable depending upon the specifics of your emergency department visit. If you don't have a primary care physician on staff, we will provide you with a referral. We always advise you to contact your personal physician following an emergency department visit to inform them of the circumstance of the visit and for follow-up with them and/or the need for any referrals to a consulting specialist. The emergency department will also refer you to a specialist when appropriate. This referral assures that you have the opportunity for follow-up care with a specialist. All of these measure are taken in an effort to provide you with optimal care, which includes your follow-up. Under all circumstances we always encourage you to contact your private physician who remains a resource for coordinating your care. When calling for follow-up care, please make the office aware that this follow-up is from your recent emergency room visit. If for any reason you are refused follow-up, please contact the [facility] Emergency Department at and asked to speak to the emergency department charge nurse. [facility] [address] [place] [address] [facility] [address] [place] [id number] <Katerine Hughes E - Last Filed: 03/28/20 10:33> ED HPI GENERAL MEDICAL PROBLEM - General Source of Information: Reports: Patient History Limitations: Reports: No Limitations - History of Present Illness INITIAL COMMENTS - FREE TEXT/NARRATIVE: HISTORY AND PHYSICAL: History of present illness: Patient is a 54-year-old female who presents to the emergency room with complaints of urinary retention. Earlier this morning she had a bladder sling surgery by Dr. Coreas for urinary incontinence. She states after surgery she was discharged to home and since has only voided 1 time. "I really had to work for a small amount of urine" - stating she only voided a few drops but had relief of her discomfort. Currently has sensation of fullness with mild discomfort. Patient denies any fever, chills, headache, change in vision, syncope or near syncope. Denies any chest pain, back pain, shortness of breath or cough. Denies any nausea, vomiting, diarrhea, or constipation. Patient has been eating and drinking appropriately. Review of systems: As per history of present illness and below otherwise all systems reviewed and negative. Past medical history: As per history of present illness and as reviewed below otherwise noncontributory. Surgical history: As per history of present illness and as reviewed below otherwise no ncontributory. Social history: See social history for further information Family history: As per history of present illness and as reviewed below otherwise noncontributory. Physical exam: General: Well developed and well nourished 54 year old emale. Alert and orientated x 3. Nontoxic in appearance and in no acute distress. Vital signs are stable and have been reviewed by me. Nursing notes were reviewed. HEENT: Atraumatic, normocephalic, pupils equal and reactive bilaterally, negative for conjunctival pallor or scleral icterus, mucous membranes moist, trachea midline. No drooling or trismus noted. No meningeal signs. No hot potato voice noted. Lungs: Clear to auscultation, breath sounds equal bilaterally, chest nontender. Normal work of breathing, no accessory muscles used. Heart: S1S2, regular rate and rhythm without overt murmur Abdomen: Soft, nondistended, nontender. Negative for masses or hepatosplenomegaly. Negative for costovertebral tenderness. Pelvis: Stable nontender. Skin: Intact, warm, dry. No lesions or rashes noted. Hematologic: No petechiae or purpra. Mucosa appropriate color and normal nail bed color and refill. Extremities: Atraumatic, moves all extremities per self without difficulty or deficits, negative for cords or calf pain. Neurovascular unremarkable. Neuro: Awake, alert, oriented. Cranial nerves II through XII unremarkable. Cerebellum unremarkable. Motor and sensory unremarkable throughout. Exam nonfocal. Psychiatric: Mood and affect are appropriate. Normal thought process. Answering questions appropriately. Notes: Able to view Dr. Coreas's note. She was under general LMA anesthesia. Patient had a TVT with cystoscopy. There is no postop complications Diagnostics: UA Therapeutics: Bladder Scanner, Herndon Insert Impression: Urinary retention Definitive disposition and diagnosis as appropriate pending reevaluation and review of above. Abdomen Pain Score (Numeric/FACES): 3 Past Medical History HEENT History: Reports: Impaired Vision Other HEENT History: wears glasses Cardiovascular History: Reports: High Cholesterol, Stents Other Cardiovascular History: arteriosclerotic cardiovascular disease; had coronary artery stent placement October 2018 Respiratory History: Reports: None Gastrointestinal History: Reports: None, Irritable Bowel Syndrome Genitourinary History: Reports: Urinary Incontinence TECHNOLOGY RISK INTERN History: Reports: Musculoskeletal History: Reports: None Neurological History: Reports: None Psychiatric History: Reports: Anxiety, Depression, PTSD Endocrine/Metabolic History: Reports: None Hematologic History: Reports: None Immunologic History: Reports: None Oncologic (Cancer) History: Reports: None Dermatologic History: Reports: Other (See Below) Other Dermatologic History: rosachia - Infectious Disease History Infectious Disease History: Reports: Chicken Pox, Mumps Other Infectious Disease History: when a child - Past Surgical History Head Surgeries/Procedures: Reports: None HEENT Surgical History: Reports: None Cardiovascular Surgical History: Reports: Coronary Artery Stent GI Surgical History: Reports: None Female Surgical History: Reports: Hysterectomy, Other (See Below) Other Female Surgeries/Procedures: surgical pelvis repair Neurological Surgical History: Reports: None Other Musculoskeletal Surgeries/Procedures:: states has had left hand surgery in the past Dermatological Surgical History: Reports: None Social & Family History - Family History Family Medical History: No Pertinent Family History - Caffeine Use Caffeine Use: Reports: None Course - Vital Signs Last Recorded V/S: Last Vital Signs Temp 98.4 F 03/24/20 21:20 Pulse 75 03/24/20 21:20 Resp 16 03/24/20 21:20 BP 142/74 H 03/24/20 21:20 Pulse Ox 90 L 03/24/20 21:20 - Orders/Labs/Meds Labs: Laboratory Tests 03/24/20 Range/Units 22:05 Urine Color YELLOW Urine Appearance CLEAR Urine pH 6.0 (5.0-8.0) Ur Specific [place] 1.020 (1.001-1.035) Urine Protein NEGATIVE (NEGATIVE) mg/dL Urine Glucose (UA) NEGATIVE (NEGATIVE) mg/dL Urine Ketones NEGATIVE (NEGATIVE) mg/dL Urine Occult Blood NEGATIVE (NEGATIVE) Urine Nitrite NEGATIVE (NEGATIVE) Urine Bilirubin NEGATIVE (NEGATIVE) Urine Urobilinogen 0.2 (<2.0) EU/dL Ur Leukocyte Esterase TRACE H (NEGATIVE) Urine RBC 0-1 (0-2/HPF) Urine WBC 0-1 (0-5/HPF) Ur Epithelial Cells RARE (NONE-FEW) Urine Bacteria FEW (NEGATIVE) Urine Mucus LIGHT (NONE-MOD) Sepsis Event Note (ED) - Evaluation Sepsis Screening Result: No Definite Risk
== END 2020-03-24 22:56 | disposition home or self-care (01) ==
LOC: MW.ED 20:57
DX: R33.9 Retention of urine, unspecified (principal); F41.9 Anxiety disorder, unspecified; F32.9 Major depressive disorder, single episode, unspecified; Z91.040 Latex allergy status; Z88.2 Allergy status to sulfonamides; Z79.82 Long term (current) use of aspirin; Z79.02 Long term (current) use of antithrombotics/antiplatelets; Z79.899 Other long term (current) drug therapy
CPT/HCPCS: 51702; 51798; 81001; 87086; 99283-25

== ENCOUNTER 2020-05-15 02:39 | Emergency (ER) | payer MEDICAID ==
--- NOTE | 2020-05-15 03:07 | EDM.PDOC ---
ED HPI GENERAL MEDICAL PROBLEM - General Chief Complaint: Upper Extremity Injury/Pain Stated Complaint: LT ARM IS SWOLLEN Time Seen by Provider: 05/15/20 02:52 - History of Present Illness INITIAL COMMENTS - FREE TEXT/NARRATIVE: 55-year-old female presenting with right arm swelling and discoloration. Patient had a carpal tunnel and thumb surgery 5 days ago in [place]. Over the last day she has noticed increasing discoloration and ecchymosis tracking into her fingers and into her forearm no new paresthesias no new pain patient also reports some discomfort over the proximal incision. This worsens with movement of her splint. No exacerbating or alleviating factors radiation or other associated symptoms. No fevers no shortness of breath no chest pain. Patient states that she is concerned about the swelling as she had a DVT in the setting of knee surgery in the past. Left Lower Arm Pain Score (Numeric/FACES): 4 - Related Data Allergies Allergy/AdvReac Type Severity Reaction Status Date / Time latex Allergy Rash Verified 03/24/20 21:25 Sulfa (Sulfonamide Allergy Cannot Verified 03/24/20 21:25 Antibiotics) Remember Home Meds: Home Meds Aspirin 81 mg PO DAILY 12/17/19 [History] Clopidogrel [Plavix] 75 mg PO DAILY 12/17/19 [History] Metoprolol Tartrate 25 mg PO DAILY 12/17/19 [History] Venlafaxine [Effexor] 37.5 mg PO DAILY 12/17/19 [History] traZODone HCl [Trazodone HCl] 50 mg PO DAILY 12/17/19 [History] Estrogens, Conjugated [Premarin] 1 applic TOP ASDIRECTED 03/18/20 [History] Famotidine 1 tab PO DAILY 03/18/20 [History] Fluticasone Propionate [Flonase Allergy Relief] 1 spray NASLF DAILY 03/18/20 [History] Gabapentin [Neurontin] 1 tab PO TID 03/18/20 [History] OXcarbazepine [Oxcarbazepine] 1 tab PO DAILY 03/18/20 [History] Past Medical History HEENT History: Reports: Impaired Vision Other HEENT History: wears glasses Cardiovascular History: Reports: High Cholesterol, Stents Other Cardiovascular History: arteriosclerotic cardiovascular disease; had coronary artery stent placement October 2018 Respiratory History: Reports: None Gastrointestinal History: Reports: None, Irritable Bowel Syndrome Genitourinary History: Reports: Urinary Incontinence 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: Reports: Musculoskeletal History: Reports: None Neurological History: Reports: None Psychiatric History: Reports: Anxiety, Depression, PTSD Endocrine/Metabolic History: Reports: None Hematologic History: Reports: None Immunologic History: Reports: None Oncologic (Cancer) History: Reports: None Dermatologic History: Reports: Other (See Below) Other Dermatologic History: rosachia - Infectious Disease History Infectious Disease History: Reports: Chicken Pox, Mumps Other Infectious Disease History: when a child - Past Surgical History Head Surgeries/Procedures: Reports: None HEENT Surgical History: Reports: None Cardiovascular Surgical History: Reports: Coronary Artery Stent GI Surgical History: Reports: None Female Surgical History: Reports: Hysterectomy, Other (See Below) Other Female Surgeries/Procedures: surgical pelvis repair Neurological Surgical History: Reports: None Other Musculoskeletal Surgeries/Procedures:: states has had left hand surgery in the past Dermatological Surgical History: Reports: None Social & Family History - Family History Family Medical History: No Pertinent Family History - Tobacco Use Tobacco Use Status *Q: Never Tobacco User Second Hand Smoke Exposure: No - Caffeine Use Caffeine Use: Reports: Coffee - Recreational Drug Use Recreational Drug Use: No Review of Systems - Review of Systems Review Of Systems: See Below Constitutional: Reports: No Symptoms Respiratory: Reports: No Symptoms Cardiovascular: Reports: No Symptoms GI/Abdominal: Reports: No Symptoms Musculoskeletal: Reports: Other (Per HPI) Skin: Reports: Other (Per HPI) ED EXAM, GENERAL - Physical Exam Exam: See Below Free Text/Narrative:: General Appearance: No acute distress, appears comfortable Skin: No rash HEENT: Normocephalic/atraumatic, sclera anicteric, mucous membranes moist Neck: Normal range of motion Back: Normal Musculoskeletal: Right upper extremity in a short arm thumb spica she has some mild nontender ecchymosis proximal to the splint as well as up the fingertips the fingertips are warm and well-perfused patient has a 1 cm well approximated clean dry and intact incision just distal to the start of the splint back after the splint was loosened and removed the thumb spica was left in place. She has good perfusion and good pulses she has no abnormal swelling. Neurologic: Awake, alert, no obvious deficits, moving all extremities Psychiatric: Appropriate, cooperative Course - Vital Signs Last Recorded V/S: Last Vital Signs Temp 96.7 F L 05/15/20 02:53 Pulse 55 L 05/15/20 04:14 Resp 14 05/15/20 04:14 BP 119/66 05/15/20 04:14 Pulse Ox 98 05/15/20 04:14 - Orders/Labs/Meds Orders: Active Orders 24 hr Category Date Time Status VL Duplex Upr Ext Veins Ltd Rt [US] Stat Exams 05/15/20 03:33 Ordered Labs: Laboratory Tests 05/15/20 Range/Units 03:10 D-Dimer, Quantitative 0.83 H (0.0-0.50) mg/L FEU Departure - Departure Time of Disposition: 04:50 Disposition: Home, Self-Care 01 Condition: Good Clinical Impression: Postoperative ecchymosis - Discharge Information *PRESCRIPTION DRUG MONITORING PROGRAM REVIEWED*: Not Applicable *COPY OF PRESCRIPTION DRUG MONITORING REPORT IN PATIENT BRIGID: Not Applicable Instructions: Cast or Splint Care, Adult, [id number] Forms: ED Department Discharge Additional Instructions: Please be sure to follow-up with your surgeon as scheduled. The following information is given to patients seen in the emergency department who are being discharged to home. This information is to outline your options for follow-up care. We provide all patients seen in our emergency department with a follow-up referral. The need for follow-up, as well as the timing and circumstances, are variable depending upon the specifics of your emergency department visit. If you don't have a primary care physician on staff, we will provide you with a referral. We always advise you to contact your personal physician following an emergency department visit to inform them of the circumstance of the visit and for follow-up with them and/or the need for any referrals to a consulting specialist. The emergency department will also refer you to a specialist when appropriate. This referral assures that you have the opportunity for follow-up care with a specialist. All of these measure are taken in an effort to provide you with optimal care, which includes your follow-up. Under all circumstances we always encourage you to contact your private physician who remains a resource for coordinating your care. When calling for follow-up care, please make the office aware that this follow-up is from your recent emergency room visit. If for any reason you are refused follow-up, please contact the [facility] Emergency Department at and asked to speak to the emergency department charge nurse. Sepsis Event Note (ED) - Evaluation Sepsis Screening Result: No Definite Risk - Focused Exam Vital Signs: Vital Signs Temp Pulse Resp BP Pulse Ox 05/15/20 04:14 55 L 14 119/66 98 05/15/20 02:53 96.7 F L 64 16 118/71 95 - My Orders Last 24 Hours: My Active Orders 05/15/20 03:33 VL Duplex Upr Ext Veins Ltd Rt [US] Stat - Assessment/Plan Last 24 Hours: My Active Orders 05/15/20 03:33 VL Duplex Upr Ext Veins Ltd Rt [US] Stat Plan: 55-year-old female presenting with signs and symptoms that are most consistent with normal postsurgical change no sign of vascular compromise no sign of acute infective process no sign of wound dehiscence. Given patient's prior history D- dimer will be sent to screen for DVT if this is abnormal then we will proceed with right upper extremity ultrasound. US is negative. Ecchymosis felt to be consistent with normal post op course. Pt will f/u with surgery as scheduled. The splint was reclosed.
--- NOTE | 2020-05-15 05:28 | US ---
INDICATION: Right arm swelling. Positive D-dimer. TECHNIQUE: Ultrasound venous duplex upper right extremity. Compression venous exam was performed using miranda-scale, color Doppler, and spectral Doppler imaging. COMPARISON: None available FINDINGS: The right internal jugular, subclavian, and axillary veins are patent with normal waveforms. The visualized brachial, basilic, and cephalic veins are fully compressible. The visualized portions of the radial and ulnar veins are patent and compressible. The distal radial and ulnar veins are not seen due to overlying cast. No soft tissue abnormalities seen. IMPRESSION: No sonographic evidence of a deep venous thrombosis in the visualized right upper extremity venous structures. Dictated by Juan Diehl MD @ 05/15/2020 5:27:15 AM Dictated by: Juan Diehl MD @ 05/15/2020 05:27:21 (Electronically Signed)
== END 2020-05-15 05:00 | disposition home or self-care (01) ==
LOC: MW.ED 02:39
DX: M96.840 Postprocedural hematoma of a musculoskeletal structure following a musculoskeletal system procedure (principal); Z91.040 Latex allergy status; Z88.2 Allergy status to sulfonamides; Z79.82 Long term (current) use of aspirin; Z79.02 Long term (current) use of antithrombotics/antiplatelets; Z79.899 Other long term (current) drug therapy
CPT/HCPCS: 36415; 85379; 93971-26-RT; 93971-RT; 99282; 99284-25

== ENCOUNTER 2021-07-22 15:17 | Emergency (ER) | payer MEDICARE ==
[2021-07-22] MEDS ORDERED: Sodium Chloride 0.9% 2.5 ML Syringe FLUSH PRN (15:38)
[2021-07-22] MEDS ORDERED: Sodium Chloride 0.9% 10 ML Syringe FLUSH PRN (15:38)
[2021-07-22] MEDS ORDERED: Sodium Chloride 0.9% 1,000 ML IV ONE (15:45)
[2021-07-22] MEDS ORDERED: Famotidine 20 MG/2 ML SDV IVPUSH ONE (15:45)
[2021-07-22] MEDS ORDERED: Ondansetron 4 MG/2 ML SDV IVPUSH ONE (15:45)
[2021-07-22 16:57] LABS: CARBON DIOXIDE,CO2 26.5 mmol/L (21.0-32.0); POTASSIUM,K 4.3 mmol/L (3.5-5.1)
[2021-07-22] MEDS ORDERED: LORazepam 2 MG/ML SDV IVPUSH ONE (17:26)
[2021-07-22] MEDS ORDERED: Iopamidol 755 MG/ML 500 ML Multipack Bottle IVPUSH ONE (18:06)
== END 2021-07-22 18:55 | disposition home or self-care (01) ==
LOC: MW.ED 15:17
DX: R74.01 Elevation of levels of liver transaminase levels (principal)
CPT/HCPCS: 36415; 74177; 80053; 80305; 81003; 83690; 85025; 96374; 96375; 99284; J2060; J2405; J3490; J7030; Q9967

== ENCOUNTER 2021-09-13 22:24 | Emergency (ER) | payer MEDICARE, MEDICAID ==
[2021-09-13] MEDS ORDERED: Sodium Chloride 0.9% 1,000 ML IV ONE (23:10)
[2021-09-13] MEDS ORDERED: Metoclopramide 10 MG/2 ML SDV IVPUSH ONE (23:10)
[2021-09-13] MEDS ORDERED: Pantoprazole 40 MG in Sodium Chloride 0.9% 10 ML IVPUSH STA (23:13)
[2021-09-13 23:56] LABS: BLOOD UREA NITROGEN,BUN 10 mg/dL (7.0-18.0); CARBON DIOXIDE,CO2 29.3 mmol/L (21.0-32.0); CHLORIDE,CL 101 mmol/L (98-107); GLUCOSE RANDOM 152 mg/dL (74-106); LIPASE 65 U/L (73-393); POTASSIUM,K 3.8 mmol/L (3.5-5.1); SODIUM,NA 141 mmol/L (136-145)
== END 2021-09-14 00:53 | disposition home or self-care (01) ==
LOC: MW.ED 22:24
DX: K21.9 Gastro-esophageal reflux disease without esophagitis (principal); Z95.5 Presence of coronary angioplasty implant and graft; Z91.040 Latex allergy status; Z88.2 Allergy status to sulfonamides; Z79.82 Long term (current) use of aspirin; Z79.02 Long term (current) use of antithrombotics/antiplatelets
CPT/HCPCS: 36415; 80053; 83690; 84702; 84703; 85025; 96365; 96375; 99284; C9113; J2765; J3490; J7030

== ENCOUNTER 2021-10-11 07:36 | Day surgery (SDC) | payer MEDICARE, MEDICAID ==
[~2021-10-11 07:36] MED LIST changes: -Lidocaine 2% 5 ML SDV ONE; -Ondansetron 4 MG/2 ML SDV ONE; -Sodium Chloride 0.9% 10 ML SDV IV PRN; -Sodium Chloride 0.9% 10 ML Syringe FLUSH PRN; -Sodium Chloride 0.9% 2.5 ML Syringe FLUSH PRN; -fentaNYL 250 MCG/5 ML SDV ONE
== END 2021-10-11 09:55 | disposition home or self-care (01) ==
LOC: MW.SDS 07:36
PROVIDERS: ATTEND Surgery
DX: K29.70 Gastritis, unspecified, without bleeding (principal); K31.7 Polyp of stomach and duodenum; K22.89 Other specified disease of esophagus; K31.89 Other diseases of stomach and duodenum; F41.8 Other specified anxiety disorders; I25.10 Atherosclerotic heart disease of native coronary artery without angina pectoris; F32.A Depression, unspecified; H54.7 Unspecified visual loss; E78.00 Pure hypercholesterolemia, unspecified; G47.00 Insomnia, unspecified; Z88.2 Allergy status to sulfonamides; Z91.040 Latex allergy status; Z79.82 Long term (current) use of aspirin; K21.00 Gastro-esophageal reflux disease with esophagitis, without bleeding; Z87.891 Personal history of nicotine dependence; Z95.5 Presence of coronary angioplasty implant and graft; Z79.51 Long term (current) use of inhaled steroids; Z79.899 Other long term (current) drug therapy
CPT/HCPCS: 43239; J2250; J2704; J7120

== ENCOUNTER 2023-05-26 12:55 | Emergency (ER) | payer MEDICARE, OTHER ==
[2023-05-26] MEDS: Sodium Chloride 0.9% 10 ML Syringe FLUSH PRN (14:17)
[2023-05-26] MEDS: Sodium Chloride 0.9% 2.5 ML Syringe FLUSH PRN (14:17)
[2023-05-26] MEDS: Albuterol/Ipratropium 3.0-0.5 MG/3 ML Neb Soln NEB ONE ×2 (14:17→16:58)
[2023-05-26] MEDS: methylPREDNISolone Sodium Succinate 125 MG/2 ML SDV IVPUSH ONE (14:17)
[2023-05-26 14:23] LABS: BASOPHILS ABSOLUTE AUTO 0.06 K/uL (0.00-0.20); BASOPHILS PERCENT AUTO 0.7 % (0.0-1.0); EOSINOPHILS ABSOLUTE AUTO 0.45 K/uL (0.00-0.45); EOSINOPHILS PERCENT AUTO 5.1 % (0.0-6.0); HEMATOCRIT 40.2 % (37.0-47.0); HEMOGLOBIN 14.7 g/dL (12.0-16.0); IMMATURE GRAN ABSOLUTE AUTO 0.03 K/uL (0.00-0.05); IMMATURE GRAN PERCENT AUTO 0.3 % (0.0-0.4); LYMPHOCYTES ABSOLUTE AUTO 1.75 K/uL (1.00-4.80); LYMPHOCYTES PERCENT AUTO 19.8 % (24.0-44.0); MEAN CORPUSCULAR HEMOGLOBIN 34.8 pg (28.0-32.0); MEAN CORPUSCULAR HGB CONC 36.6 g/dL (32.0-36.0); MEAN PLATELET VOLUME 9.8 fL (9.4-12.3); MONOCYTES ABSOLUTE AUTO 0.78 K/uL (0.00-0.80); MONOCYTES PERCENT AUTO 8.8 % (0.0-8.0); NEUTROPHILS ABSOLUTE AUTO 5.77 K/uL (1.80-7.70); NEUTROPHILS PERCENT AUTO 65.3 % (41.0-71.0); PLATELET COUNT,PLT 167 K/uL (150-400); RED BLOOD CELL COUNT 4.23 M/uL (4.10-5.30); WHITE BLOOD CELL COUNT,WBC 8.84 K/uL (3.9-11.3)
[2023-05-26 14:36] LABS: D-DIMER QUANTITATIVE 0.4 mg/L FEU (0.00-0.50); INR 1.05 (0.86-1.11)
[2023-05-26 14:52] LABS: A/G RATIO 1.1 (0.9-1.6); BILIRUBIN TOTAL 0.9 mg/dL (0.2-1.0); CALCIUM 8.8 mg/dL (8.5-10.1); CARBON DIOXIDE,CO2 30.1 mmol/L (21.0-32.0); CREATININE 0.8 mg/dL (0.6-1.0); EST CRCL DRUG DOSING (CG) 56.43 mL/min; POTASSIUM,K 4.2 mmol/L (3.5-5.1); PROTEIN TOTAL,TP 7.5 g/dL (6.4-8.2)
[2023-05-26 14:53] LABS: CORONAVIRUS COVID-19 NAA NEGATIVE (NEGATIVE); INFLUENZA A NAA NEGATIVE (NEGATIVE); INFLUENZA B NAA NEGATIVE (NEGATIVE); RESPIRATORY SYNCYTIAL VIR NAA NEGATIVE (NEGATIVE)
[2023-05-26] MEDS: predniSONE 20 MG Tab PO ONE (16:58)
== END 2023-05-26 17:15 | disposition home or self-care (01) ==
LOC: MW.ED 12:55
DX: J45.909 Unspecified asthma, uncomplicated (principal); R07.9 Chest pain, unspecified; Z88.2 Allergy status to sulfonamides; Z91.040 Latex allergy status; Z79.82 Long term (current) use of aspirin; Z79.899 Other long term (current) drug therapy; Z90.710 Acquired absence of both cervix and uterus; Z87.891 Personal history of nicotine dependence
CPT/HCPCS: 0241U; 36415; 71045; 80053; 83880; 84484; 85025; 85379; 85610; 93005; 94640; 96374; 99285; J2930; J3490; 93010; 99284; J7620-GY

== ENCOUNTER 2024-03-16 09:05 | Day surgery (SDC) | payer MEDICAID, MEDICARE ==
[2024-03-16] MEDS: Lactated Ringers 1,000 ML IV SCH (09:50)
[2024-03-16] MEDS ORDERED: propofoL 500 MG/50 ML 50 ML ONE (10:45)
[2024-03-16] MEDS ORDERED: Lactated Ringers 1,000 ML IV SCH (11:15)
[2024-03-16] MEDS ORDERED: fentaNYL 100 MCG/2 ML SDV ONE (11:17)
== END 2024-03-16 12:30 | disposition home or self-care (01) ==
LOC: MW.SDS 09:05
PROVIDERS: ATTEND Surgery
DX: Z12.11 Encounter for screening for malignant neoplasm of colon (principal); K62.1 Rectal polyp; K57.30 Diverticulosis of large intestine without perforation or abscess without bleeding; F41.9 Anxiety disorder, unspecified; F32.A Depression, unspecified; I10 Essential (primary) hypertension; E78.5 Hyperlipidemia, unspecified; I25.10 Atherosclerotic heart disease of native coronary artery without angina pectoris; Z79.899 Other long term (current) drug therapy
CPT/HCPCS: 45380; 88305; J2704; J3010; J7120

== ENCOUNTER 2024-07-09 19:46 | Emergency (ER) | payer MEDICARE ==
[2024-07-09] MEDS ORDERED: Sodium Chloride 0.9% 2.5 ML Syringe FLUSH PRN (20:06)
[2024-07-09] MEDS ORDERED: Sodium Chloride 0.9% 20 ML SDV IV PRN (20:06)
[2024-07-09] MEDS ORDERED: Sodium Chloride 0.9% 10 ML Syringe FLUSH PRN (20:06)
[2024-07-09 20:11] LABS: BASOPHILS ABSOLUTE AUTO 0.08 K/uL (0.00-0.20); BASOPHILS PERCENT AUTO 1.2 % (0.0-1.0); EOSINOPHILS ABSOLUTE AUTO 0.49 K/uL (0.00-0.45); EOSINOPHILS PERCENT AUTO 7.4 % (0.0-6.0); HEMATOCRIT 42.2 % (37.0-47.0); IMMATURE GRAN ABSOLUTE AUTO 0.01 K/uL (0.00-0.05); IMMATURE GRAN PERCENT AUTO 0.2 % (0.0-0.4); LYMPHOCYTES ABSOLUTE AUTO 2.88 K/uL (1.00-4.80); LYMPHOCYTES PERCENT AUTO 43.2 % (24.0-44.0); MEAN CORPUSCULAR HEMOGLOBIN 32.5 pg (28.0-32.0); MEAN CORPUSCULAR HGB CONC 35.5 g/dL (32.0-36.0); MEAN CORPUSCULAR VOLUME 91.5 fL (83.0-99.0); MEAN PLATELET VOLUME 9.4 fL (9.4-12.3); MONOCYTES ABSOLUTE AUTO 0.79 K/uL (0.00-0.80); MONOCYTES PERCENT AUTO 11.9 % (0.0-8.0); NEUTROPHILS ABSOLUTE AUTO 2.41 K/uL (1.80-7.70); NEUTROPHILS PERCENT AUTO 36.1 % (41.0-71.0); PLATELET COUNT,PLT 208 K/uL (150-400); RED BLOOD CELL COUNT 4.61 M/uL (4.10-5.30); WHITE BLOOD CELL COUNT,WBC 6.66 K/uL (3.9-11.3)
[2024-07-09 20:37] LABS: CALCIUM 9.5 mg/dL (8.5-10.1); EST CRCL DRUG DOSING (CG) 44.58 mL/min; MAGNESIUM 1.8 mg/dL (1.8-2.4); POTASSIUM,K 4.1 mmol/L (3.5-5.1)
[2024-07-09] MEDS: Aspirin 81 MG Tab.Chew PO ONE (23:48)
[2024-07-10] MEDS: Heparin Sodium 5,000 Units/ML Vial IVPUSH ONE ×2 (00:08→00:18)
[2024-07-10] MEDS: Heparin Sodium/0.45% NaCl 25,000 UNITS/250 ML BAG IV SCH (00:16)
[2024-07-10 00:23] LABS: INR 1.08 (0.86-1.11); PTT,PARTIAL THROMBOPLSTIN TIME 26.1 SEC (23.9-30.7)
== END 2024-07-10 01:28 | disposition other institution (70) ==
LOC: MW.ED 19:46
DX: I21.4 Non-ST elevation (NSTEMI) myocardial infarction (principal); I24.9 Acute ischemic heart disease, unspecified; E78.00 Pure hypercholesterolemia, unspecified; Z88.2 Allergy status to sulfonamides; Z91.040 Latex allergy status; Z79.82 Long term (current) use of aspirin; Z79.899 Other long term (current) drug therapy; Z90.710 Acquired absence of both cervix and uterus
CPT/HCPCS: 36415; 71046; 80048; 83735; 84484; 85025; 85610; 85730; 93005; 96365; 99285; A9270; J1644; 93010

== ENCOUNTER 2024-08-07 16:48 | Emergency (ER) | payer MEDICARE ==
[2024-08-07 18:36] LABS: BASOPHILS ABSOLUTE AUTO 0.08 K/uL (0.00-0.20); BASOPHILS PERCENT AUTO 1.4 % (0.0-1.0); EOSINOPHILS ABSOLUTE AUTO 0.79 K/uL (0.00-0.45); EOSINOPHILS PERCENT AUTO 13.6 % (0.0-6.0); HEMATOCRIT 38.6 % (37.0-47.0); IMMATURE GRAN ABSOLUTE AUTO 0.01 K/uL (0.00-0.05); IMMATURE GRAN PERCENT AUTO 0.2 % (0.0-0.4); LYMPHOCYTES ABSOLUTE AUTO 2.34 K/uL (1.00-4.80); LYMPHOCYTES PERCENT AUTO 40.2 % (24.0-44.0); MEAN CORPUSCULAR HEMOGLOBIN 30.6 pg (28.0-32.0); MEAN CORPUSCULAR HGB CONC 33.7 g/dL (32.0-36.0); MEAN CORPUSCULAR VOLUME 90.8 fL (83.0-99.0); MONOCYTES ABSOLUTE AUTO 0.73 K/uL (0.00-0.80); MONOCYTES PERCENT AUTO 12.5 % (0.0-8.0); NEUTROPHILS ABSOLUTE AUTO 1.87 K/uL (1.80-7.70); NEUTROPHILS PERCENT AUTO 32.1 % (41.0-71.0); PLATELET COUNT,PLT 293 K/uL (150-400); RED BLOOD CELL COUNT 4.25 M/uL (4.10-5.30); WHITE BLOOD CELL COUNT,WBC 5.82 K/uL (3.9-11.3)
[2024-08-07 19:06] LABS: BILIRUBIN TOTAL 0.5 mg/dL (0.2-1.0); CALCIUM 9.4 mg/dL (8.5-10.1); CARBON DIOXIDE,CO2 29.4 mmol/L (21.0-32.0); EST CRCL DRUG DOSING (CG) 44.58 mL/min; MAGNESIUM 1.9 mg/dL (1.8-2.4); POTASSIUM,K 4.7 mmol/L (3.5-5.1); PROTEIN TOTAL,TP 8.2 g/dL (6.4-8.2)
[2024-08-07] MEDS ORDERED: Naloxone 0.4 MG/ML SDV IVPUSH PRN (19:41)
[2024-08-07] MEDS: Morphine 2 MG/ML SYRINGE IVPUSH ONE (19:46)
[2024-08-07] MEDS: Sodium Chloride 0.9% 1,000 ML IV ONE (19:47)
[2024-08-07] MEDS: Iopamidol 755 MG/ML 500 ML Multipack Bottle IVPUSH ONE (20:16)
[2024-08-08] MEDS: Acetaminophen 500 MG Tab PO ONE (01:39)
== END 2024-08-08 02:17 ==
LOC: MW.ED 16:48
DX: R07.9 Chest pain, unspecified (principal); R79.82 Elevated C-reactive protein (CRP); R70.0 Elevated erythrocyte sedimentation rate; R01.1 Cardiac murmur, unspecified; Z95.1 Presence of aortocoronary bypass graft; Z90.710 Acquired absence of both cervix and uterus; Z88.2 Allergy status to sulfonamides; Z91.040 Latex allergy status; Z79.82 Long term (current) use of aspirin; Z79.899 Other long term (current) drug therapy
CPT/HCPCS: 36415; 71046; 71275; 74174; 80053; 83690; 83735; 84484; 85025; 85652; 86140; 93005; 96361; 96374; 99285; A9270; J2270; J7030; Q9967; 99284